=== PATIENT | female | born 1950 | race Caucasian/White ===

== ENCOUNTER 2019-07-29 11:40 | Emergency (ER) | payer MEDICARE ==
[2019-07-29 13:54] VITALS: BP 112/74
--- NOTE | 2019-07-29 13:55 | UC ---
FLU HPI - HPI Summary HPI Summary: 68 yo female presents with flu like symptoms. She tells me that on 07/05 her daughter had flu like symptoms consisting of fever, fatigue, body aches, dry cough, n/v/d. On 07/06 pt developed same symptoms that significantly improved within 5 days. She believes she had the flu. Was not diagnosed or tested. Since that time she has had continued dry cough and fatigue. She has been taking OTC cough medicine with mild relief. Denies sinus symptoms, sore throat, SOB, chest pain, abdominal pain, n/v/d, dysuria, back pain. - History of Current Complaint Chief Complaint: UCRespiratory Stated Complaint: COUGH Hx Obtained From: Patient Onset/Duration: Gradual Onset Severity Currently: Mild Severity Initially: Mild Pain Intensity: 2 Pain Scale Used: 0-10 Numeric - Allergy/Home Medications Allergies/Adverse Reactions: Allergies Allergy/AdvReac Type Severity Reaction Status Date / Time narcotics Allergy Nausea Uncoded 07/29/19 13:54 Home Medications: Home Medications Butalb/Acetamin/Caff TAB* [Fioricet TAB*] 1 tab PO DAILY PRN 07/29/19 [History Confirmed 07/29/19] Dm/PE/Acetaminophen/Doxylamine [Vicks Dayquil-Nyquil Cold-Flu] 1 tab PO ONCE PRN 07/29/19 [History Confirmed 07/29/19] Famotidine [Heartburn Prevention] 2 tab PO DAILY 07/29/19 [History Confirmed ] Prochlorperazine Maleate [Compazine] 10 mg PO DAILY PRN 07/29/19 [History Confirmed 07/29/19] SUMAtriptan succinate [Sumatriptan Succinate] 1 tab PO DAILY PRN 07/29/19 [ History Confirmed 07/29/19] Zoledronic/Mannitol 5 MG/100ML [Reclast 5 MG/100ML] 1 dose IV ONCE 07/29/19 [ History Confirmed 07/29/19] buPROPion HCl [Bupropion HCl Sr] 1 tab PO BID 07/29/19 [History Confirmed ] lamoTRIgine [Lamotrigine] 200 mg PO BID 07/29/19 [History Confirmed 07/29/19] PMH/Surg Hx/FS Hx/Imm Hx Neurological History: Migraine Psychological History: Bipolar Disorder - Surgical History Surgical History: Yes Surgery Procedure, Year, and Place: fused cervical spine - Family History Known Family History: Positive: Other - Mental health - Social History Lives: With Family Alcohol Use: Rare Substance Use Type: None Smoking Status (MU): Never Smoked Tobacco Review of Systems All Other Systems Reviewed And Are Negative: No Constitutional: Positive: Fatigue Skin: Positive: Negative Eyes: Positive: Negative ENT: Positive: Negative Respiratory: Positive: Cough Cardiovascular: Positive: Negative Gastrointestinal: Positive: Negative Neurological: Positive: Negative Psychological: Positive: Negative Physical Exam - Summary Physical Exam Summary: GENERAL: NAD. WDWN. No pain distress. SKIN: No rashes, sores, lesions, or open wounds. HEENT: Head: AT/NC Eyes: EOM intact. Conjunctiva clear without inflammation or discharge. Ears: Hearing grossly normal. TMs intact, no bulging, erythema, or edema. Nose: Nasal mucosa pink and moist. NTTP maxillary and frontal sinus. Throat: Posterior oropharynx without exudates, erythema, or tonsillar enlargement. Uvula midline. NECK: Supple. Nontender. No lymphadenopathy. CHEST: Mild wheezing RLL. No accessory muscle use. Breathing comfortably and in no distress. CV: RRR. Pulses intact. Cap refill <2seconds NEURO: Alert. PSYCH: Age appropriate behavior. Triage Information Reviewed: Yes Vital Signs: Initial Vital Signs Temp 99.2 F 07/29/19 13:48 Pulse 92 07/29/19 13:48 Resp 18 07/29/19 13:48 BP 112/74 07/29/19 13:48 Pulse Ox 100 07/29/19 13:48 Vital Signs Reviewed: Yes Diagnostics - Radiology CXR Radiology Interpretation Completed By: Radiologist Summary of Radiographic Findings: IMPRESSION: No active cardiopulmonary disease is noted. Flu Course/Dx - Course Course Of Treatment: CXR as above. Suspect lingering irritant cough and fatigue from recent influenza. Pt states she is feeling better today compared to yesterday. Recommend trying OTC dayquill /nyquill and delsym for cough. She declined rx medication at this time. Recommend f/u if symptoms worsen or persist - Differential Dx/Diagnosis Provider Diagnosis: Cough Discharge ED - Sign-Out/Discharge Documenting (check all that apply): Patient Departure All imaging exams completed and their final reports reviewed: Yes - Discharge Plan Condition: Stable Disposition: HOME Patient Education Materials: Influenza (ED), Acute Cough (ED) Referrals: No Primary Care Phys,NOPCP [Primary Care Provider] - Additional Instructions: Your chest x-ray was normal today. I recommend you continue to take dayquill/nyquill for your cough. Rest and drink plenty of fluids to stay hydrated. If your symptoms worsen or do not improve - please be rechecked - Billing Disposition and Condition Condition: STABLE Disposition: Home
== END 2019-07-29 14:49 | disposition home or self-care (01) ==
LOC: UCEAST 11:40
DX: R05 Cough (principal); R53.83 Other fatigue; M79.10 Myalgia, unspecified site; G43.909 Migraine, unspecified, not intractable, without status migrainosus; F31.9 Bipolar disorder, unspecified; Z98.1 Arthrodesis status; Z79.899 Other long term (current) drug therapy; Z88.5 Allergy status to narcotic agent
CPT/HCPCS: 71046; 99201; G0463